=== PATIENT | male | born 2000 | race Caucasian/White ===

== ENCOUNTER 2025-02-13 08:05 | Emergency (ER) | payer BC, OTHER ==
[~2025-02-13] VITALS: Ht 180.3 cm; Wt 77.1 kg
[2025-02-13] MEDS ORDERED: Ketorolac Tromethamine 30mg Vial IM ONE (09:05)
[2025-02-13] MEDS ORDERED: Methocarbamol 500 MG Tab PO ONE (09:05)
[2025-02-13] MEDS ORDERED: Methyl Salicylate/Menth/Camph 57 GM TUBE TOP ONE (09:10)
[2025-02-13] MEDS ORDERED: Robaxin750 MG PO (10:22)
== END 2025-02-13 10:34 | disposition home or self-care (01) ==
LOC: ER 08:05
DX: S29.012A Strain of muscle and tendon of back wall of thorax, initial encounter (principal); S29.011A Strain of muscle and tendon of front wall of thorax, initial encounter; J45.909 Unspecified asthma, uncomplicated; F17.210 Nicotine dependence, cigarettes, uncomplicated; X58.XXXA Exposure to other specified factors, initial encounter
CPT/HCPCS: 71046; 93005; 93010; 96372; 99283-25; A9270; J1885